=== PATIENT | female | born 1975 | race African-American/Black ===

== ENCOUNTER 2023-08-26 01:00 | Inpatient (IN) | payer MEDICAID, OTHER ==
[~2023-08-26] VITALS: Ht 162.6 cm; Wt 75.7 kg
[2023-08-26] MEDS: MORPHINE SULFATE 4 MG/ML INJ (FOR IV/IM USE) IV STA ×2 (02:17→05:50)
[2023-08-26] MEDS: ONDANSETRON HCL 4MG/2ML INJ IV STA ×2 (02:22→05:51)
[2023-08-26] MEDS: SODIUM CHLORIDE 0.9% 1,000 ML IV ONE ×2 (02:24→06:02)
[2023-08-26 02:37] LABS: HEMATOCRIT. 42.7 % (36.0-48.0); HEMOGLOBIN. 13.8 g/dL (12.0-16.0); LYMPHOCYTES % 45.1 % (20.0-50.0); MEAN CORPUSCULAR HEMOGLOBIN 27.6 pg (28.0-32.0); MEAN CORPUSCULAR HGB CONC 32.2 g/dL (31.0-37.0); MEAN CORPUSCULAR VOLUME 85.4 fL (81.0-99.0); MONOCYTES % 4.5 % (2.0-8.0); NEUTROPHILS % 47.4 % (40.0-76.0); PLATELET 303 x1000/uL (130-400); RED CELL DISTRIBUTION WIDTH 26.7 % (11.6-14.6); WHITE BLOOD COUNT 3.8 x1000/uL (4.5-11.0)
[2023-08-26 02:41] LABS: ADD RBC MORPHOLOGY YES; DIFFERENTIAL COMMENT 1
[2023-08-26 02:43] LABS: CHLORIDE 106 mEq/L (98-107); SODIUM 142 mEq/L (136-145)
[2023-08-26 02:44] LABS: CARBON DIOXIDE 33 mEq/L (21-32)
[2023-08-26 02:49] LABS: GLUCOSE 71 mg/dL (70-105); UREA NITROGEN BLOOD 16 mg/dL (9-23)
[2023-08-26 02:51] LABS: ALANINE AMINOTRANSFERASE 17 IU/L (10-49); ALBUMIN 4.5 g/dL (3.2-4.8); ASPARTATE AMINOTRANSFERASE 25 IU/L (<34); BILIRUBIN TOTAL 0.3 mg/dL (0.1-1.0); PROTEIN TOTAL 7.2 g/dL (6.0-8.3)
[2023-08-26 02:56] LABS: OVALOCYTES 1+; TARGET CELLS 2+; TEAR DROP CELLS 2+
[2023-08-26 02:57] LABS: BILIRUBIN DIRECT < 0.1 mg/dL (<=3.0); ETHANOL BLOOD < 10 mg/dL (<10); GIANT PLATELETS 2+
[2023-08-26 02:58] LABS: PLATELET ESTIMATE NORMAL
[2023-08-26] MEDS: MIDAZOLAM HCL 2 MG/2 ML VIAL IV NR (04:45)
[2023-08-26] MEDS: PIPERACILLIN/TAZO 3.375G/50ML 50 ML IV ONE (05:51)
[2023-08-26] MEDS ORDERED: ONDANSETRON HCL 4MG/2ML INJ ONE (07:28)
[2023-08-26] MEDS ORDERED: ROCURONIUM BROMIDE 10MG/ML VIAL 5ML IV ONE (07:28)
[2023-08-26] MEDS ORDERED: PROPOFOL 200MG/20ML VIAL IV ONE ×2 (07:29→08:41)
[2023-08-26] MEDS ORDERED: FENTANYL CITRATE/PF 50MCG/ML 2ML VIAL ONE ×2 (07:29→08:43)
[2023-08-26] MEDS ORDERED: MIDAZOLAM HCL 2 MG/2 ML VIAL ONE (07:29)
[2023-08-26] MEDS ORDERED: LIDOCAINE HCL 1% 10 MG/ML 10ML VIAL ONE (07:32)
[2023-08-26] MEDS ORDERED: SUGAMMADEX SODIUM 200 MG/2 ML VIAL IV SCH (08:15)
[2023-08-26] MEDS ORDERED: ACETAMINOPHEN 1000MG/100ML 100 ML IV ONE (08:15)
[2023-08-26] MEDS ORDERED: ALBUTEROL 6.7GM HFA INHALER ONE (08:22)
[2023-08-26] MEDS ORDERED: DEXAMETHASONE 4MG/ML 1ML VIAL ONE (08:40)
[2023-08-26] MEDS ORDERED: ALBUTEROL (0.5%) 2.5MG/0.5ML NEB HHN ONE (09:15)
[2023-08-26] MEDS ORDERED: ONDANSETRON HCL 4MG/2ML INJ IV PRN ×2 (09:15→09:45)
[2023-08-26] MEDS ORDERED: FENTANYL CITRATE/PF 50MCG/ML 2ML VIAL IV PRN (10:00)
[2023-08-26] MEDS ORDERED: METOPROLOL TARTRATE 5MG/5ML VIAL IV PRN (10:00)
[2023-08-26] MEDS: HYDROMORPHONE HCL/PF 2MG/ML CPJ IV PRN (10:03)
[2023-08-26 11:25] VITALS: BP 156/98; PULSE 98; RESP 20; TEMP 97.5
[2023-08-26 12:00] VITALS: BP 156/98; PULSE 98; RESP 18; TEMP 97.5
[2023-08-26] MEDS: DEXT 5%/0.45% NACL KCL 20MEQ/L 1,000 ML IV SCH (14:14)
[2023-08-26] MEDS: PIPERACILLIN/TAZO 3.375G/50ML 50 ML IV SCH (14:14)
[2023-08-26] MEDS: MORPHINE SULFATE 2 MG/ML CPJ (NOT FOR IM USE) IV PRN (14:14)
[2023-08-26 16:00] VITALS: BP 160/99; PULSE 104; RESP 20; TEMP 97.6
[2023-08-26] MEDS ORDERED: NALOXONE HCL 0.4MG/ML VIAL IV PRN (16:30)
[2023-08-26 20:00] VITALS: BP 171/93; PULSE 104; RESP 17; TEMP 102.2
[2023-08-26] MEDS: MORPHINE SULFATE 4 MG/ML INJ (FOR IV/IM USE) IV PRN (20:45)
[2023-08-26] MEDS: FAMOTIDINE 20MG/2ML VIAL IV SCH (20:45)
[2023-08-27] VITALS: BP 181/98; PULSE 101; RESP 17; TEMP 97.8
[2023-08-27] MEDS: HYDRALAZINE 20MG/ML VIAL IV PRN (00:55)
[2023-08-27 04:00] VITALS: BP 175/98; PULSE 113; RESP 17; TEMP 97.7
[2023-08-27 07:10] LABS: CARBON DIOXIDE 28 mEq/L (21-32); CHLORIDE 105 mEq/L (98-107); POTASSIUM 3.7 mEq/L (3.5-5.1); SODIUM 140 mEq/L (136-145)
[2023-08-27 07:12] LABS: CALCIUM 10.1 mg/dL (8.7-10.4)
[2023-08-27 07:13] LABS: BASOPHILS % 0.1 % (0.0-2.0); EOSINOPHILS % 0.4 % (0.0-5.0); HEMOGLOBIN. 12.6 g/dL (12.0-16.0); MEAN CORPUSCULAR HEMOGLOBIN 27.8 pg (28.0-32.0); MEAN CORPUSCULAR HGB CONC 31.4 g/dL (31.0-37.0); MEAN CORPUSCULAR VOLUME 88.7 fL (81.0-99.0); MEAN PLATELET VOLUME 7.9 fl (7.4-10.4); MONOCYTES % 7.4 % (2.0-8.0); NEUTROPHILS % 82.1 % (40.0-76.0); PLATELET 254 x1000/uL (130-400); RED BLOOD CELL COUNT 4.51 mill/uL (4.2-5.4)
[2023-08-27 07:16] LABS: CREATININE 0.8 mg/dL (0.6-1.0); GLUCOSE 68 mg/dL (70-105); UREA NITROGEN BLOOD 8 mg/dL (9-23)
[2023-08-27 07:17] LABS: DIFFERENTIAL COMMENT 1
[2023-08-27 08:00] VITALS: BP 145/95; PULSE 110; RESP 20; TEMP 98.9
[2023-08-27] MEDS: HYDRALAZINE 20MG/ML VIAL IV SCH (08:21)
[2023-08-27 08:32] LABS: CLARITY URINE CLEAR (CLEAR); COLOR URINE YELLOW (YELLOW); GLUCOSE URINE NEGATIVE (NEGATIVE); KETONES URINE 1+ (NEGATIVE); LEUKOCYTE ESTERASE URINE NEGATIVE (NEGATIVE); NITRITE URINE NEGATIVE (NEGATIVE); OCCULT BLOOD URINE TRACE (NEGATIVE); PH URINE 7.5 (4.5-8.0); PROTEIN URINE NEGATIVE (NEGATIVE); SPECIFIC GRAVITY URINE 1.017 (1.005-1.030)
[2023-08-27 08:45] LABS: MUCUS URINE 1+ /lpf (< = 2+); SQUAMOUS EPITHELIAL CELL URINE RARE /lpf (RARE/1+)
[2023-08-27 08:46] LABS: RBC URINE 15-25 /hpf (0-2)
[2023-08-27 08:47] LABS: BACTERIA URINE TRACE; WBC URINE 0-2 /hpf (0-2)
[2023-08-27 08:52] LABS: *AMPHETAMINES SCREEN URINE NEGATIVE (NEGATIVE); *BARBITURATES SCREEN URINE NEGATIVE (NEGATIVE); *BENZODIAZEPINES SCREEN URINE PRESUMPTIVE POSITIVE (NEGATIVE); *COCAINE SCREEN URINE NEGATIVE (NEGATIVE); METHADONE URINE SCREEN NEGATIVE (NEGATIVE); OPIATES URINE SCREEN PRESUMPTIVE POSITIVE (NEGATIVE)
[2023-08-27 08:53] LABS: CANNABINOID URINE SCREEN NEGATIVE (NEGATIVE); ECSTASY MDMA SCREEN URINE NEGATIVE (NEGATIVE); PHENCYCLIDINE URINE SCREEN NEGATIVE (NEGATIVE)
[2023-08-27] MEDS: DEXTROSE 50% WATER 50ML SYRINGE IV NR (08:53)
[2023-08-27 12:00] VITALS: BP 152/95; PULSE 95; RESP 20; TEMP 98.2
[2023-08-27] MEDS: ACETAMINOPHEN 650MG SUPP PR PRN (15:32)
[2023-08-27 16:00] VITALS: BP 143/96; PULSE 119; RESP 20; TEMP 98.1
[2023-08-27 20:00] VITALS: BP 133/102; PULSE 114; RESP 19; TEMP 98
[2023-08-28] VITALS: BP 161/94; PULSE 113; RESP 16; TEMP 98.3
[2023-08-28 04:00] VITALS: BP 143/101; PULSE 119; RESP 18; TEMP 99.5
[2023-08-28 06:59] LABS: BASOPHILS % 0.2 % (0.0-2.0); EOSINOPHILS % 2.2 % (0.0-5.0); HEMATOCRIT. 40.5 % (36.0-48.0); HEMOGLOBIN. 12.9 g/dL (12.0-16.0); LYMPHOCYTES % 12.7 % (20.0-50.0); MEAN CORPUSCULAR HEMOGLOBIN 28.4 pg (28.0-32.0); MEAN CORPUSCULAR HGB CONC 31.8 g/dL (31.0-37.0); MEAN CORPUSCULAR VOLUME 89.3 fL (81.0-99.0); MEAN PLATELET VOLUME 8.2 fl (7.4-10.4); NEUTROPHILS % 77.9 % (40.0-76.0); PLATELET 243 x1000/uL (130-400); RED BLOOD CELL COUNT 4.54 mill/uL (4.2-5.4); RED CELL DISTRIBUTION WIDTH 25.3 % (11.6-14.6)
[2023-08-28 07:23] LABS: CHLORIDE 107 mEq/L (98-107); POTASSIUM 3.8 mEq/L (3.5-5.1); SODIUM 138 mEq/L (136-145)
[2023-08-28 07:24] LABS: CALCIUM 9.7 mg/dL (8.7-10.4); CARBON DIOXIDE 22 mEq/L (21-32)
[2023-08-28 07:29] LABS: CREATININE 0.7 mg/dL (0.6-1.0); GLUCOSE 78 mg/dL (70-105); UREA NITROGEN BLOOD 7 mg/dL (9-23)
[2023-08-28 07:32] LABS: DIFFERENTIAL COMMENT 1
[2023-08-28 08:00] VITALS: BP 146/94; PULSE 125; RESP 19; TEMP 97.5
[2023-08-28 12:00] VITALS: BP 161/107; PULSE 117; RESP 19; TEMP 97.1
[2023-08-28 16:00] VITALS: BP 158/97; PULSE 124; RESP 19; TEMP 100.8
[2023-08-28] MEDS: MICAFUNGIN 100MG in NORMAL SALINE 100ML IV SCH (16:50)
[2023-08-28 20:00] VITALS: BP 141/95; PULSE 123; RESP 20; TEMP 99.5
[2023-08-29] VITALS: BP 141/113; PULSE 131; RESP 19; TEMP 99.3
[2023-08-29 04:00] VITALS: BP 160/100; PULSE 122; RESP 21; TEMP 99.3
[2023-08-29 06:59] LABS: CARBON DIOXIDE 26 mEq/L (21-32); CHLORIDE 106 mEq/L (98-107); POTASSIUM 3.4 mEq/L (3.5-5.1); SODIUM 139 mEq/L (136-145)
[2023-08-29 07:05] LABS: CREATININE 0.7 mg/dL (0.6-1.0); GLUCOSE 85 mg/dL (70-105); UREA NITROGEN BLOOD 10 mg/dL (9-23)
[2023-08-29 07:15] LABS: BASOPHILS % 0.7 % (0.0-2.0); EOSINOPHILS % 3.4 % (0.0-5.0); HEMATOCRIT. 38.6 % (36.0-48.0); HEMOGLOBIN. 12.5 g/dL (12.0-16.0); LYMPHOCYTES % 14.4 % (20.0-50.0); MEAN CORPUSCULAR HEMOGLOBIN 28.5 pg (28.0-32.0); MEAN CORPUSCULAR HGB CONC 32.5 g/dL (31.0-37.0); MEAN CORPUSCULAR VOLUME 87.7 fL (81.0-99.0); MEAN PLATELET VOLUME 8.6 fl (7.4-10.4); NEUTROPHILS % 74.5 % (40.0-76.0); PLATELET 267 x1000/uL (130-400); RED BLOOD CELL COUNT 4.41 mill/uL (4.2-5.4); WHITE BLOOD COUNT 7.2 x1000/uL (4.5-11.0)
[2023-08-29 08:00] VITALS: BP 157/97; PULSE 117; RESP 20; TEMP 97.3
[2023-08-29 08:20] LABS: DIFFERENTIAL COMMENT 1
[2023-08-29] MEDS: METOPROLOL TARTRATE 5MG/5ML VIAL IV NR (10:41)
[2023-08-29 12:00] VITALS: BP 154/106; PULSE 113; RESP 19; TEMP 97.4
[2023-08-29 16:00] VITALS: BP 156/108; PULSE 110; RESP 20; TEMP 97.7
[2023-08-29 20:00] VITALS: BP 141/97; PULSE 114; RESP 19; TEMP 98.2
[2023-08-30] VITALS: BP 137/97; PULSE 119; RESP 19; TEMP 98.4
[2023-08-30 04:00] VITALS: BP 136/98; PULSE 116; RESP 19; TEMP 98.3
[2023-08-30 05:27] LABS: BASOPHILS % 0.7 % (0.0-2.0); EOSINOPHILS % 3.6 % (0.0-5.0); HEMATOCRIT. 38.4 % (36.0-48.0); HEMOGLOBIN. 12.4 g/dL (12.0-16.0); LYMPHOCYTES % 18.8 % (20.0-50.0); MEAN CORPUSCULAR HEMOGLOBIN 27.9 pg (28.0-32.0); MEAN CORPUSCULAR HGB CONC 32.3 g/dL (31.0-37.0); MEAN CORPUSCULAR VOLUME 86.4 fL (81.0-99.0); MEAN PLATELET VOLUME 8.5 fl (7.4-10.4); MONOCYTES % 11.3 % (2.0-8.0); NEUTROPHILS % 65.6 % (40.0-76.0); PLATELET 259 x1000/uL (130-400); RED BLOOD CELL COUNT 4.45 mill/uL (4.2-5.4); RED CELL DISTRIBUTION WIDTH 23.3 % (11.6-14.6); WHITE BLOOD COUNT 6.3 x1000/uL (4.5-11.0)
[2023-08-30 05:36] LABS: CHLORIDE 108 mEq/L (98-107); POTASSIUM 3.5 mEq/L (3.5-5.1); SODIUM 140 mEq/L (136-145)
[2023-08-30 05:37] LABS: CARBON DIOXIDE 25 mEq/L (21-32)
[2023-08-30 05:38] LABS: CALCIUM 9.7 mg/dL (8.7-10.4)
[2023-08-30 05:42] LABS: CREATININE 0.7 mg/dL (0.6-1.0); GLUCOSE 93 mg/dL (70-105)
[2023-08-30 05:43] LABS: UREA NITROGEN BLOOD 13 mg/dL (9-23)
[2023-08-30 06:08] LABS: DIFFERENTIAL COMMENT 1
[2023-08-30 08:00] VITALS: BP 141/97; PULSE 119; RESP 20; TEMP 97.7
[2023-08-30 12:00] VITALS: BP 136/98; PULSE 106; RESP 19; TEMP 98.8
[2023-08-30] MEDS: METOPROLOL TARTRATE 25MG TABLET PO SCH (13:29)
[2023-08-30 16:00] VITALS: BP 121/87; PULSE 92; RESP 20; TEMP 99.1
[2023-08-30 20:00] VITALS: BP 148/84; PULSE 106; RESP 20; TEMP 97.9
[2023-08-30] MEDS: TRAMADOL 50MG TABLET PO PRN (21:57)
[2023-08-31] VITALS: BP 132/80; PULSE 94; RESP 20; TEMP 97.6
[2023-08-31 04:00] VITALS: BP 146/82; PULSE 98; RESP 20; TEMP 97.3
[2023-08-31 06:33] LABS: BASOPHILS % 0.6 % (0.0-2.0); HEMATOCRIT. 35.7 % (36.0-48.0); HEMOGLOBIN. 11.7 g/dL (12.0-16.0); LYMPHOCYTES % 26.6 % (20.0-50.0); MEAN CORPUSCULAR HEMOGLOBIN 28.5 pg (28.0-32.0); MEAN CORPUSCULAR HGB CONC 32.8 g/dL (31.0-37.0); MEAN CORPUSCULAR VOLUME 86.8 fL (81.0-99.0); MEAN PLATELET VOLUME 8.5 fl (7.4-10.4); MONOCYTES % 13.3 % (2.0-8.0); NEUTROPHILS % 55.5 % (40.0-76.0); PLATELET 253 x1000/uL (130-400); RED BLOOD CELL COUNT 4.11 mill/uL (4.2-5.4); RED CELL DISTRIBUTION WIDTH 23.3 % (11.6-14.6); WHITE BLOOD COUNT 5.7 x1000/uL (4.5-11.0)
[2023-08-31 06:49] LABS: CALCIUM 9.6 mg/dL (8.7-10.4); CARBON DIOXIDE 27 mEq/L (21-32); CHLORIDE 106 mEq/L (98-107); POTASSIUM 3.7 mEq/L (3.5-5.1); SODIUM 138 mEq/L (136-145)
[2023-08-31 06:50] LABS: DIFFERENTIAL COMMENT 1
[2023-08-31 06:55] LABS: CREATININE 0.8 mg/dL (0.6-1.0); GLUCOSE 86 mg/dL (70-105); UREA NITROGEN BLOOD 10 mg/dL (9-23)
[2023-08-31 08:00] VITALS: BP 133/90; PULSE 94; RESP 16; TEMP 97.8
[2023-08-31 12:00] VITALS: BP 134/93; PULSE 91; RESP 18; TEMP 97.9
[2023-08-31 16:00] VITALS: BP 128/88; PULSE 91; RESP 18; TEMP 97.6
[2023-08-31 20:00] VITALS: BP 118/82; PULSE 82; RESP 20; TEMP 97.5
[2023-09-01] VITALS: BP 139/91; PULSE 85; RESP 19; TEMP 97.8
[2023-09-01 04:00] VITALS: BP 156/89; PULSE 86; RESP 19; TEMP 98.1
[2023-09-01 08:00] VITALS: BP 132/77; PULSE 77; RESP 16; TEMP 97.6
[2023-09-01] MEDS ORDERED: FLUC200T51 MT (12:22)
[2023-09-01 16:02] VITALS: RESP 16
[2023-09-01] MEDS ORDERED: METO25TA6 PO (16:06)
[2023-09-01 16:57] VITALS: BP 138/62; PULSE 76; TEMP 97.9; O2SAT 98
== END 2023-09-01 17:40 | disposition home or self-care (01) | DRG 710 ==
LOC: ER 01:00 → OR 05:35 → 7EST 05:36
PROVIDERS: ADMIT Internal Medicine; ATTEND Internal Medicine
PROC: 0DU707Z Supplement Stomach, Pylorus with Autologous Tissue Substitute, Open Approach (ICD-10-PCS; principal; 2023-08-26)
DX: A41.9 Sepsis, unspecified organism (principal); K27.5 Chronic or unspecified peptic ulcer, site unspecified, with perforation; K65.9 Peritonitis, unspecified; I25.10 Atherosclerotic heart disease of native coronary artery without angina pectoris; J44.9 Chronic obstructive pulmonary disease, unspecified; D72.819 Decreased white blood cell count, unspecified; I10 Essential (primary) hypertension
CPT/HCPCS: 36415; 71045; 74176; 80048; 80076; 80305; 80320; 81003; 82962; 83605; 84145; 85025; 87070; 87075; 87106; 93005; 97161; 99291; J0360; J1100; J1170; J2248; J2250; J2270; J2405; J2543; J2704; J3010; J3490; J7030; J7050; J7120; G0480; J0131